=== PATIENT | female | born 1930 | race Caucasian/White ===

== ENCOUNTER 2016-09-28 13:52 | Emergency (ER) | payer OTHER, MEDICARE ==
[~2016-09-28] VITALS: Ht 154.9 cm; Wt 53.5 kg
[~2016-09-28 13:52] MED LIST: ASPIR-LOW81 MG PO; DOCUSATE SODIU100 MG PO; DOXYCYCLINE HYC50 MG PO; ENDOCET 5-3251 EACH PO; FOLIC ACID1 MG PO; METHOTREXATE2.5 MG PO; RANITIDINE HCL150 MG PO; celeXA PO
[2016-09-28 16:18] VITALS: BP 111/92
== END 2016-09-28 16:39 | disposition home or self-care (01) ==
LOC: EME 13:52
DX: S09.90XA Unspecified injury of head, initial encounter (principal); W01.0XXA Fall on same level from slipping, tripping and stumbling without subsequent striking against object, initial encounter; Y92.512 Supermarket, store or market as the place of occurrence of the external cause; K21.9 Gastro-esophageal reflux disease without esophagitis; Z86.73 Personal history of transient ischemic attack (TIA), and cerebral infarction without residual deficits
CPT/HCPCS: 70450; 99281; 99284

== ENCOUNTER 2016-12-28 11:51 | Observation (INO) | payer OTHER, MEDICARE ==
[~2016-12-28] VITALS: Ht 157.5 cm; Wt 52.6 kg
[2016-12-28 13:03] LABS: HEMATOCRIT 41.9 % (36.0-46.0); MCH 27.4 PG (29.0-34.0); MCV 88.4 FL (83-99); MEAN PLAT.VOLUME 10.6 uM^3 (9.5-12.4); PLATELET COUNT 164 K/uL (156-360); RBC DIS.WIDTH-CV 16.2 % (11.8-14.6); RBC DIS.WIDTH-SD 52.6 % (39-53); RED BLOOD COUNT 4.74 M/uL (3.80-5.20)
[2016-12-28 13:07] LABS: INTER. NORMALIZED RATIO 0.9; PROTHROMBIN TIME 10.2 SEC (10.2-12.9)
[2016-12-28 13:14] LABS: CHLORIDE 104 mEq/L (99-109); POTASSIUM 4.5 mEq/L (3.7-5.4); SODIUM 141 mEq/L (136-147)
[2016-12-28 13:15] LABS: GLUCOSE 88 mg/dL (70-99)
[2016-12-28 13:17] LABS: ANION GAP 13 MEQ/L (2-14)
[2016-12-28 13:19] LABS: GFR ESTIMATE (CALCULATED) > 59 mL/min/
[2016-12-28 13:20] LABS: UREA NITROGEN (BUN) 16 mg/dL (9-23)
[2016-12-28 13:27] LABS: TROP-I INTERPRETATION NEGATIVE; TROPONIN-I < 0.01 ng/mL (0.0-0.30)
[2016-12-28 14:38] LABS: ADD MIUA? NO; BILIRUBIN NEGATIVE; BLOOD NEGATIVE; COLOR YELLOW ((YELLOW)); GLUCOSE (STRIP) NEGATIVE; KETONES 5; LEUKOCYTES NEGATIVE; NITRITE NEGATIVE; PROTEIN (STRIP) NEGATIVE; UCUL ADDED? NO; UROBILINOGEN 0.2 MG/DL (0.2-1.0)
[2016-12-28] MEDS ORDERED: ASPIR-LOW81 MG PO (15:40)
[2016-12-28] MEDS ORDERED: TIMOPTIC-0100 DROP/1 BOTH EYES (15:42)
[2016-12-28] MEDS ORDERED: CENTRUM SILVER1 EAC3 PO (15:42)
[2016-12-28] MEDS ORDERED: CLARITIN,ALAVAR10 MG PO (15:43)
[2016-12-28 16:58] VITALS: BP 152/70
[2016-12-29 00:29] VITALS: BP 133/59
[2016-12-29 03:55] VITALS: BP 134/59
[2016-12-29 06:02] LABS: HEMATOCRIT 34.4 % (36.0-46.0); MCH 27.6 PG (29.0-34.0); MCHC 31.4 G/DL (30.0-36.0); MCV 87.8 FL (83-99); MEAN PLAT.VOLUME 10.6 uM^3 (9.5-12.4); PLATELET COUNT 161 K/uL (156-360); RBC DIS.WIDTH-CV 16.6 % (11.8-14.6); RBC DIS.WIDTH-SD 52.7 % (39-53); RED BLOOD COUNT 3.92 M/uL (3.80-5.20); WHITE BLOOD COUNT 5.4 K/uL (4.1-10.2)
[2016-12-29 06:18] LABS: ANION GAP 5 MEQ/L (2-14); CHLORIDE 110 MEQ/L (99-109); GFR ESTIMATE (CALCULATED) > 59 mL/min/; GLUCOSE 83 mg/dL (70-99); POTASSIUM 3.7 MEQ/L (3.7-5.4); SAMPLE HEMOLYSIS CHECK 0; SAMPLE ICTERIC CHECK 0; SAMPLE LIPEMIA CHECK 0; SODIUM 142 MEQ/L (136-147); UREA NITROGEN (BUN) 12 mg/dL (9-23)
[2016-12-29 09:00] VITALS: BP 152/67
[2016-12-29 11:53] VITALS: BP 177/68
[2016-12-29] MEDS ORDERED: ASPIR-LOW81 MG PO (15:09)
== END 2016-12-29 17:09 | disposition home or self-care (01) ==
LOC: EME → EDBD 11:51 → EDOF 14:50 → 5WEST 14:50 → ENRESERV 14:51 → 5WEST 16:54
PROVIDERS: Emergency Medicine; Internal Medicine
DX: R19.7 Diarrhea, unspecified (principal); E86.0 Dehydration; I95.9 Hypotension, unspecified; M32.9 Systemic lupus erythematosus, unspecified; R42 Dizziness and giddiness; Z88.0 Allergy status to penicillin; Z88.2 Allergy status to sulfonamides; Z79.82 Long term (current) use of aspirin; I10 Essential (primary) hypertension; Z86.73 Personal history of transient ischemic attack (TIA), and cerebral infarction without residual deficits; Z79.899 Other long term (current) drug therapy
CPT/HCPCS: 71010; 80048; 81003; 83605; 83630; 84484; 85027; 85610; 87177; 93005; 99281; 99285; G0378; G8978 GP CI; G8979 GP CH; J1650; J7030

== ENCOUNTER 2017-03-11 09:20 | Emergency (ER) | payer OTHER, MEDICARE ==
[~2017-03-11] VITALS: Ht 152.4 cm; Wt 50.6 kg
[~2017-03-11 09:20] MED LIST changes: +CENTRUM SILVER1 EAC3 PO; +CLARITIN,ALAVAR10 MG PO; +TIMOPTIC-0100 DROP/1 BOTH EYES
[2017-03-11 09:59] LABS: ADD MIUA? YES; BILIRUBIN NEGATIVE; BLOOD MODERATE; COLOR YELLOW ((YELLOW)); GLUCOSE (STRIP) NEGATIVE; KETONES NEGATIVE; LEUKOCYTES LARGE; NITRITE NEGATIVE; PROTEIN (STRIP) 100; UROBILINOGEN 0.2 MG/DL (0.2-1.0)
[2017-03-11 10:14] LABS: EPITHELIAL CELLS 1+ /HPF; MUCUS 1+ /LPF
[2017-03-11 10:15] LABS: BACTERIA 1+ /HPF; CASTS NONE SEEN /LPF; CRYSTALS NONE SEEN; UCUL ADDED? YES; WHITE BLOOD CELLS 20-30 /HPF (0-5)
[2017-03-11] MEDS ORDERED: KEFLEX500 MG PO (12:07)
[2017-03-11 13:38] VITALS: BP 138/64
== END 2017-03-11 13:39 | disposition home or self-care (01) ==
LOC: EME 09:20
PROVIDERS: Emergency Medicine
PROC: 0T2BX0Z Change Drainage Device in Bladder, External Approach (ICD-10-PCS; principal; 2017-03-11)
DX: T83.511A Infection and inflammatory reaction due to indwelling urethral catheter, initial encounter (principal); N39.0 Urinary tract infection, site not specified; I10 Essential (primary) hypertension; K21.9 Gastro-esophageal reflux disease without esophagitis; F03.90 Unspecified dementia, unspecified severity, without behavioral disturbance, psychotic disturbance, mood disturbance, and anxiety; Z86.73 Personal history of transient ischemic attack (TIA), and cerebral infarction without residual deficits; Z88.0 Allergy status to penicillin
CPT/HCPCS: 80053; 81003; 83690; 85025; 87086; 99281; 99285

== ENCOUNTER 2017-04-23 17:26 | Observation (INO) | payer OTHER, MEDICARE ==
[~2017-04-23] VITALS: Ht 157.5 cm; Wt 52.9 kg
[~2017-04-23 17:26] MED LIST changes: +CIPRO500 MG PO; +KEFLEX500 MG PO
[2017-04-23 18:16] LABS: EOSINOPHIL (%) 2.3 % (0-5); EOSINOPHIL COUNT 0.2 K/uL (0-0.3); HEMATOCRIT 36.5 % (36.0-46.0); IMMATURE GRANULOCYTE (%) 0.5 % (0.0-0.7); IMMATURE GRANULOCYTE COUNT 0.1 K/uL; INSTRUMENT ABS NEUTROPHIL CT 6.8 K/uL; LYMPHOCYTE COUNT 1.9 K/uL (1.0-2.8); MCH 28.8 PG (29.0-34.0); MCHC 31.5 G/DL (30.0-36.0); MCV 91.3 FL (83-99); MONOCYTE COUNT 0.7 K/uL (0-0.8); NEUTROPHIL (%) 70.3 % (45-76); NEUTROPHIL COUNT 6.8 K/uL (1.8-6.4); RBC DIS.WIDTH-CV 15.2 % (11.8-14.6); RBC DIS.WIDTH-SD 50.4 % (39-53); WHITE BLOOD COUNT 9.7 K/uL (4.1-10.2)
[2017-04-23 18:24] LABS: CHLORIDE 101 mEq/L (99-109); POTASSIUM 4.2 mEq/L (3.7-5.4); SODIUM 136 mEq/L (136-147)
[2017-04-23 18:25] LABS: GLUCOSE 100 mg/dL (70-99)
[2017-04-23 18:27] LABS: ANION GAP 8 MEQ/L (2-14)
[2017-04-23 18:29] LABS: GFR ESTIMATE (CALCULATED) 56 mL/min/
[2017-04-23 18:30] LABS: UREA NITROGEN (BUN) 20 mg/dL (9-23)
[2017-04-23 18:53] LABS: MEAN PLAT.VOLUME 10.1 uM^3 (9.5-12.4); PLAT.SUFFICIENCY ADEQUATE
[2017-04-23 19:07] LABS: PLATELET COUNT 268 K/uL (156-360)
[2017-04-23 19:59] LABS: ADD MIUA? YES; BILIRUBIN NEGATIVE; BLOOD NEGATIVE; COLOR AMBER ((YELLOW)); GLUCOSE (STRIP) NEGATIVE; KETONES NEGATIVE; LEUKOCYTES LARGE; NITRITE POSITIVE; PROTEIN (STRIP) 100; SPECIFIC GRAVITY 1.027 (1.000-1.030); UROBILINOGEN 0.2 MG/DL (0.2-1.0)
[2017-04-23 20:42] LABS: RED BLOOD CELLS 0-5 /HPF (0-5); WHITE BLOOD CELLS TNTC /HPF (0-5)
[2017-04-23 20:43] LABS: AMORPHOUS URATES CRYSTALS 2+; BACTERIA 2+ /HPF; EPITHELIAL CELLS 1+ /HPF; MUCUS 3+ /LPF
[2017-04-23] MEDS ORDERED: HIPREX1 GM PO (22:03)
[2017-04-23] MEDS ORDERED: VESICARE5 MG PO (22:03)
[2017-04-23] MEDS ORDERED: PREMARIN VAGI42.5 GM VG (22:03)
[2017-04-23] MEDS ORDERED: PROBIOTIC1 EAC1 PO (22:04)
[2017-04-23 23:11] VITALS: BP 192/72
[2017-04-24] VITALS: BP 142/62
[2017-04-24 01:23] LABS: ADD MIUA? YES; BILIRUBIN NEGATIVE; BLOOD NEGATIVE; COLOR YELLOW ((YELLOW)); GLUCOSE (STRIP) NEGATIVE; KETONES NEGATIVE; LEUKOCYTES LARGE; NITRITE NEGATIVE; PROTEIN (STRIP) 30; SPECIFIC GRAVITY 1.008 (1.000-1.030); UROBILINOGEN 0.2 MG/DL (0.2-1.0)
[2017-04-24 01:31] LABS: UCUL ADDED? NO
[2017-04-24 04:00] VITALS: BP 124/66
[2017-04-24 08:45] VITALS: BP 136/63
[2017-04-24 09:16] LABS: EOSINOPHIL COUNT 0.3 K/uL (0-0.3); HEMATOCRIT 35.5 % (36.0-46.0); IMMATURE GRANULOCYTE (%) 0.6 % (0.0-0.7); INSTRUMENT ABS NEUTROPHIL CT 4.3 K/uL; LYMPHOCYTE COUNT 1.4 K/uL (1.0-2.8); MCH 29.2 PG (29.0-34.0); MCHC 31.8 G/DL (30.0-36.0); MCV 91.7 FL (83-99); MONOCYTE (%) 7.7 % (3-12); MONOCYTE COUNT 0.5 K/uL (0-0.8); NEUTROPHIL COUNT 4.3 K/uL (1.8-6.4); RBC DIS.WIDTH-SD 49.7 % (39-53); RED BLOOD COUNT 3.87 M/uL (3.80-5.20); WHITE BLOOD COUNT 6.6 K/uL (4.1-10.2)
[2017-04-24 09:40] LABS: ANION GAP 6 MEQ/L (2-14); CHLORIDE 105 MEQ/L (99-109); GFR ESTIMATE (CALCULATED) > 59 mL/min/; GLUCOSE 81 mg/dL (70-99); POTASSIUM 4.7 MEQ/L (3.7-5.4); SAMPLE HEMOLYSIS CHECK 0; SAMPLE ICTERIC CHECK 0; SAMPLE LIPEMIA CHECK 0; SODIUM 141 MEQ/L (136-147); UREA NITROGEN (BUN) 17 mg/dL (9-23)
[2017-04-24 09:42] LABS: MEAN PLAT.VOLUME 10.3 uM^3 (9.5-12.4); PLAT.SUFFICIENCY ADEQUATE; PLATELET COUNT 248 K/uL (156-360)
[2017-04-24 11:41] VITALS: BP 106/52
[2017-04-24 15:41] VITALS: BP 114/59
[2017-04-24] MEDS ORDERED: CIPRO500 MG PO (17:28)
== END 2017-04-24 18:35 | disposition home or self-care (01) ==
LOC: EME 17:26 → 5WEST 22:16 → EDOF 22:16 → ENRESERV 22:17 → 5WEST 22:54 → ENPENDDIS 04-24 → 5WEST 04-24 18:35
PROVIDERS: Emergency Medicine; Hospitalist
DX: N39.0 Urinary tract infection, site not specified (principal); M16.11 Unilateral primary osteoarthritis, right hip; S76.011A Strain of muscle, fascia and tendon of right hip, initial encounter; F03.90 Unspecified dementia, unspecified severity, without behavioral disturbance, psychotic disturbance, mood disturbance, and anxiety; Z91.81 History of falling; I10 Essential (primary) hypertension; M32.9 Systemic lupus erythematosus, unspecified; Z79.899 Other long term (current) drug therapy; Z60.2 Problems related to living alone; Z90.710 Acquired absence of both cervix and uterus; Z90.49 Acquired absence of other specified parts of digestive tract; Z88.0 Allergy status to penicillin; Z88.2 Allergy status to sulfonamides
CPT/HCPCS: 73502; 80048; 80170; 81003; 85025; 99281; 99285; G0378; J0692; J0696; J1580; J1644; J1885; J7030; J7050